=== PATIENT | female | born 1995 | race Caucasian/White ===

== ENCOUNTER 2020-08-01 08:10 | Outpatient (CLI) | payer BC, SELFPAY ==
--- NOTE | 2020-08-01 12:43 | P.PCNPFT_ITS ---
PFT Interpretation This is a pulmonary function test with pre and post-bronchodilator spirometry, plethysmography and diffusing capacity. The test was performed and results interpreted in accordance with the 2019 and 2005 ATS/ERS Task Force guidelines respectively using the Global Lung Function Initiative-2012 reference equations. Patient demonstrated good effort and c ooperation. Reproducibility criteria were met. The quality of the pre bronchodilator spirometry maneuver was Grade A and post bronchodilator spirometry maneuver was Grade A. Findings: Spirometry: The contour the inspiratory and expiratory flow tracing are normal. The pre bronchodilator FVC is 4.12 L, 98% predicted. The pre bronchodilator FEV1 is 3.63 L, 100% predicted. The FEV1: FVC ratio was 88%. The post bronchodilator FVC is 4.34 L, representing a 5% increase. The post bronchodilator FEV1 is 3.67 L, representing 1% increase. Plethysmography: The total lung capacity is 5.54 L, 101% predicted. The functional residual capacity is 3.42 L, 113% predicted. The residual volume is 1.38 L, 100% predicted. Diffusing capacity: The absolute diffusion capacity is 25.0, 93% predicted. The diffusing capacity corrected for alveolar volume is 4.43, 91% predicted. Impression: The spirometry is normal without evidence of an obstructive abnormality. There is no significant improvement after inhaling a single dose of albuterol. The lung volumes are normal. The diffusing capacity is normal. There are no prior studies for comparison PFT Procedure Performed PFT Procedure Performed Spirometry with Pre/Post Bronchodilator Plethysmography (Lung Vol) Diffusing Cap (DLCO)
== END 2020-08-01 08:11 | disposition home or self-care (01) ==
PROVIDERS: PCP Nurse Practitioner; Visit Provider Nurse Practitioner
DX: R06.02 Shortness of breath (principal)
CPT/HCPCS: 94060; 94726; 94729

== ENCOUNTER 2021-01-05 10:55 | Emergency (ER) | payer BC, SELFPAY ==
--- NOTE | 2021-01-05 11:00 | ED.URI ---
HPI - URI/Sore Throat General Chief Complaint: Upper Respiratory Infection Stated Complaint: sore throat Time Seen by Provider: 01/05/21 11:00 Source: patient and RN notes reviewed History of Present Illness HPI Narrative: Patient is a 26-year-old female who presents the urgent care with complaints of a sore throat and runny nose. Patient states that she had a slight sore throat on Wednesday which worsened with postnasal drainage last night. Patient states that she has been using Flonase and NyQuil for her symptoms. States that she has been vaccinated for Covid and denies of any known exposure. Denies of any known exposure to strep. States that she has a chronic issues with the tonsils and is supposed to be getting them taken out but has not had time . Denies of any fever, chills, nausea, vomiting. Patient states that she did an at home Covid test this morning, which was negative. No other complaints. No acute distress noted. Patient aware of the plan of care. Some parts of this dictation were generated by voice recognition software and may contain typographical and/or grammatical inaccuracies. Related Data Allergies Allergy/AdvReac Type Severity Reaction Status Date / Time No Known Allergies Allergy Verified 01/05/21 11:06 Review of Systems Review of Systems: CONSTITUTIONAL: Denies fever, chills, or sweats. EYES: Denies visual changes, redness, or discharge. ENT: Reports of rhinorrhea, postnasal drainage and sore throat CARDIOVASCULAR: Denies chest pain, palpitations, or edema. RESPIRATORY: Denies cough or dyspnea. GASTROINTESTINAL: Denies abdominal pain, nausea, vomiting, or diarrhea. GENITOURINARY: Denies dysuria or hematuria. SKIN: Denies rash or itching. MUSCULOSKELETAL: Denies back pain, joint pain, or myalgia. NEUROLOGIC: Denies headache, numbness, or weakness. All other systems reviewed are negative, except as documented in HPI. [facility] Past Medical History Medical History (Updated 01/05/21 @ 11:25 by HIWOT Guajardo) Asthma, exercise induced Migraines Surgical History Surgical History [place] teeth removed Family History Family History (Updated 06/12/20 @ 10:39 by Velia Urias [facility]) Sibling Family history of elevated blood lipids Father Heart disease Other Diabetes mellitus Family history of malignant neoplasm of breast in first degree relative Family history of osteoarthritis Social History Social History Smoking status: Never smoker Second hand tobacco smoke exposure: No Alcohol intake: never Comments At the time of my signature, I reviewed and agree with the nursing past medical, surgical, social, and family history. There is no relevant family history pertinent to the patient complaint. Exam Narrative: GENERAL: This is a well-nourished, well-developed patient, in no apparent distress. HEAD: normocephalic, atraumatic. EYES: PERRL. Sclera clear/white. Vision is grossly intact. EARS: External ears normal, auditory canals clear and without drainage, TMs normal without perforation. Hearing grossly intact. NOSE: External nose normal with no obvious nasal discharge, nares without redness, no rhinorrhea. THROAT: Mucous membranes moist, moderate postnasal drainage with mild bilateral tonsillar erythema without exudate. NECK: Neck supple, non-tender without lymphadenopathy CARDIOVASCULAR: Regular rate and rhythm without murmurs, gallops, or rubs. RESPIRATORY: Clear to auscultation. Breath sounds equal bilaterally. No wheezes, rales, or rhonchi. SKIN: warm, intact with no suspicious lesions or rash, good texture and turgor. NEURO: awake, alert, and oriented to person, place and time. There were no obvious focal neurologic abnormalities. EXTREMITIES: No clubbing, cyanosis, or edema. Course Vital Signs Vital signs: Vital Signs Temperature 98.6 F 01/05/21 11:05 Pu
[2021-01-05 11:05] VITALS: BP 121/82; PULSE 70; RESP 16; TEMP 37; O2SAT 100
[2021-01-05 11:07] VITALS: BP 121/82; PULSE 70; RESP 16; TEMP 37; O2SAT 100
== END 2021-01-05 11:28 | disposition home or self-care (01) ==
PROVIDERS: Emergency Provider Nurse Practitioner Family
DX: J02.9 Acute pharyngitis, unspecified (principal)
CPT/HCPCS: 87081; 87880; 99213; G0463

== ENCOUNTER → 2021-04-03 09:22 | Outpatient (CLI) | payer BC, SELFPAY ==
[2021-04-08 22:11] LABS: SARS-CoV-2 RNA PCR Negative
== END ==
PROVIDERS: PCP Family Medicine; Visit Provider Nurse Practitioner
DX: Z20.822 Contact with and (suspected) exposure to COVID-19 (principal)
CPT/HCPCS: C9803; U0003; U0005